=== PATIENT | female | born 1985 | race Caucasian/White ===

== ENCOUNTER 2018-01-04 | Emergency (ER) | payer BC ==
[2018-01-04] MEDS: Sodium Chloride 0.9% 1,000 ML IV ONE (00:10)
[2018-01-04] MEDS: diphenhydrAMINE 50 MG/ML SDV IVPUSH ONE (00:35)
[2018-01-04] MEDS: Metoclopramide 10 MG/2 ML SDV IVPUSH ONE (00:35)
[2018-01-04] MEDS: Dexamethasone 4 MG/ML SDV IVPUSH ONE (00:40)
--- NOTE | 2018-01-04 00:41 | EDM.PDOC ---
ED HPI GENERAL MEDICAL PROBLEM - General Chief Complaint: Headache Stated Complaint: migraine Time Seen by Provider: 01/04/18 00:30 Source of Information: Reports: Patient History Limitations: Reports: No Limitations - History of Present Illness INITIAL COMMENTS - FREE TEXT/NARRATIVE: Patient is a 32-year-old female who presents to the emergency department this morning with a complaint of headache. Headache is described as coming on gradually 4 days ago, and has been intermittent, sometimes pressure and sometimes sharp pain. Pain is felt in her forehead, and occasionally in back of head. Has felt nauseated today. Patient denies initial thunder Clap pain, fever, vision changes, head trauma, out of country travel, chest pain, shortness of breath, or change in anxiety medicine. Onset: Gradual Duration: Day(s): Location: Reports: Head Quality: Reports: Ache, Pressure, Sharp Severity: Mild Improves with: Reports: Rest Worsens with: Reports: None Context: Denies: Trauma Associated Symptoms: Reports: Nausea/Vomiting Headache Pain Score (Numeric/FACES): 9 - Related Data Allergies Allergy/AdvReac Type Severity Reaction Status Date / Time sulfamethoxazole Allergy UNKNOWN Verified 01/04/18 00:23 [From Bactrim] trimethoprim [From Bactrim] Allergy UNKNOWN Verified 01/04/18 00:23 Home Meds: Home Meds Albuterol [Ventolin HFA] 2 puff PO Q6H PRN 09/29/15 [History] Cholecalciferol (Vitamin D3) [Vitamin D3] 400 units PO DAILY 09/29/15 [History] Cyanocobalamin (Vitamin B-12) [Vitamin B-12] 500 mcg PO DAILY 09/29/15 [History] Ferrous Gluconate 324 mg PO DAILY 09/29/15 [History] Multivitamin [Multi-Vitamin Daily] 1 tab PO DAILY 09/29/15 [History] Sertraline [Zoloft] 150 mg PO DAILY 09/29/15 [History] ED ROS GENERAL - Review of Systems Review Of Systems: ROS reveals no pertinent complaints other than HPI. Constitutional: Reports: No Symptoms HEENT: Reports: No Symptoms Respiratory: Reports: No Symptoms Cardiovascular: Reports: No Symptoms Endocrine: Reports: No Symptoms GI/Abdominal: Reports: Nausea : Reports: No Symptoms Musculoskeletal: Reports: No Symptoms Skin: Reports: No Symptoms Neurological: Reports: Headache. Denies: Confusion, Numbness, Paresthesia, Seizure, Syncope, Trouble Speaking, Difficulty Walking, Weakness, Change in Speech, Gait Disturbance Psychiatric: Reports: No Symptoms Hematologic/Lymphatic: Reports: No Symptoms Immunologic: Reports: No Symptoms - Physical Exam Exam: See Below Exam Limited By: No Limitations General Appearance: Alert, WD/WN, No Apparent Distress Eye Exam: Bilateral Eye: Normal Inspection Ears: Normal External Exam, Normal Canal, Normal TMs Nose: Normal Inspection, Normal Mucosa, No Blood Throat/Mouth: Normal Inspection, Normal Oropharynx, No Airway Compromise Head Exam: Atraumatic, Normocephalic Neck: Normal Inspection, Supple, Non-Tender, Full Range of Motion. No: Lymphadenopathy (L), Lymphadenopathy (R) Respiratory/Chest: No Respiratory Distress, Lungs Clear, Normal Breath Sounds, No Accessory Muscle Use, Chest Non-Tender Cardiovascular: Regular Rate, Rhythm, No Murmur GI/Abdominal: Normal Bowel Sounds, Soft, Non-Tender, No Organomegaly, No Distention, No Abnormal Bruit, No Mass Neuro Exam (Abbreviated): Alert, Oriented, CN II-XII Intact, Normal Cognition, No Motor/Sensory Deficits Back Exam: Normal Inspection. No: CVA Tenderness (L), CVA Tenderness (R) Extremities: Normal Inspection Psychiatric: Normal Affect, Normal Mood Skin Exam: Warm, Dry, Intact, Normal Color, No Rash Course - Vital Signs Last Recorded V/S: Last Vital Signs Temp 97.6 F 01/04/18 00:19 Pulse 97 01/04/18 00:19 Resp 18 01/04/18 00:19 BP 137/72 01/04/18 00:19 Pulse Ox 95 01/04/18 00:19 - Orders/Labs/Meds Orders: Active Orders 24 hr Category Date Time Status Peripheral IV Care [RC] . DIRECTED Care 01/04/18 00:31 Ordered Dexamethasone Med 01/04/18 00:30 Once 8 mg IVPUSH ONETIME ONE Metoclopramide [Reglan] Med 01/04/18 00:30 Once 10 mg IVPUSH ONETIME ONE Sodium Chloride 0.9% [Syrex Flush] Med 01/04/18 00:30 Ordered 5 ml FLUSH Q8HR PRN diphenhydrAMINE [Benadryl] Med 01/04/18 00:30 Once 25 mg IVPUSH ONETIME ONE Peripheral IV Insertion Adult [OM.PC] Routine Oth 01/04/18 00:30 Ordered Meds: Medications Discontinued Medications Generic Name Dose Route Start Last Admin Trade Name Luis PRN Reason Stop Dose Admin Sodium Chloride Confirm 01/04/18 00:14 Normal Saline Administered 01/04/18 00:15 Dose 1,000 mls @ as directed .ROUTE .STK-MED ONE - Re-Assessments/Exams Free Text/Narrative Re-Assessment/Exam: 01/04/18 01:12 Patient afebrile, nontoxic appearing, vital signs stable. Discussed with patient consideration of CAT scan and she would rather wait and would return if symptoms were to continue or worsen. Headache mostly resolved, no nausea or vomiting while in the emergency department, and denies any vision changes. Departure - Departure Time of Disposition: 01:14 Disposition: Home, Self-Care 01 Condition: Good Clinical Impression: Tension-type headache - Discharge Information Instructions: Tension Headache, [id number], General Headache Without Cause, [id number] Additional Instructions: Follow-up with PCP in one to 2 days. Return to emergency department sooner if symptoms continue or worsen. - My Orders Last 24 Hours: My Active Orders 01/04/18 00:30 Dexamethasone 8 mg IVPUSH ONETIME ONE Metoclopramide [Reglan] 10 mg IVPUSH ONETIME ONE Sodium Chloride 0.9% [Syrex Flush] 5 ml FLUSH Q8HR PRN diphenhydrAMINE [Benadryl] 25 mg IVPUSH ONETIME ONE Peripheral IV Insertion Adult [OM.PC] Routine 01/04/18 00:31 Peripheral IV Care [RC] . DIRECTED - Assessment/Plan Last 24 Hours: My Active Orders 01/04/18 00:30 Dexamethasone 8 mg IVPUSH ONETIME ONE Metoclopramide [Reglan] 10 mg IVPUSH ONETIME ONE Sodium Chloride 0.9% [Syrex Flush] 5 ml FLUSH Q8HR PRN diphenhydrAMINE [Benadryl] 25 mg IVPUSH ONETIME ONE Peripheral IV Insertion Adult [OM.PC] Routine 01/04/18 00:31 Peripheral IV Care [RC] . DIRECTED Assessment:: Headache Plan: Follow-up with PCP in one to 2 days
[2018-01-04] MEDS: Sodium Chloride 0.9% 5 ML Syringe FLUSH PRN (00:47)
[2018-01-04] MEDS: Sodium Chloride 0.9% 1,000 ML ONE (00:49)
[2018-01-04] MEDS: Ketorolac 30 MG/ML SDV ONE (01:07)
[2018-01-04] MEDS: Ketorolac 30 MG/ML SDV IVPUSH ONE (01:08)
== END 2018-01-04 01:15 | disposition home or self-care (01) ==
LOC: KA.ED
DX: G44.209 Tension-type headache, unspecified, not intractable (principal); Z88.2 Allergy status to sulfonamides; Z79.899 Other long term (current) drug therapy
CPT/HCPCS: 96361; 96374; 96375; 99283; J1100; J1200; J1885; J2765; J7030